=== PATIENT | male | born 1955 | race African-American/Black ===

== ENCOUNTER 2020-10-31 15:18 | Emergency (ER) | payer MEDICAID ==
[~2020-10-31] VITALS: Ht 177.8 cm; Wt 102.0 kg
--- NOTE | 2020-10-31 15:55 | NUR ---
PT IS A 65M WHO COMES IN WITH SOB AND GENERALIZED WEAKNESS SINCE YESTERDAY.. HE HAS A HX OF COPD AND CHF AND HAS A PACEMAKER. [place] VISITING FAMILY. HE WAS UP ALL NIGHT FEELING LIKE HE COULDN'T BREATHE AND FEELS WINDED WHEN HE IS UP AND AROUND. HE IS SPEAKING IN FULL SENTENCES AND DOES NOT APPEAR TO BE IN DISTRESS. HE IS 95% ON RA. CARDIAC, SP02, AND BP MONITORS IN PLACE. CALL LIGHT WITHIN REACH, ED PROVIDER AT BEDSIDE FOR EVAL AND POC
[2020-10-31] MEDS ORDERED: SODIUM CHLORIDE FLUSH 10ML SYR IVF ONE (16:00)
[2020-10-31 16:35] LABS: BASOPHILS % (AUTO) 1 % (0-1); EOSINOPHILS % (AUTO) 2 % (1-7); LYMPHOCYTES % (AUTO) 29 % (22-44); MEAN CORPUSCULAR HEMOGLOBIN 28.6 pg (27.5-34.5); MEAN CORPUSCULAR HGB CONC 33.3 g/dL (33.2-36.2); MEAN PLATELET VOLUME 9.7 fL (7.4-10.4); MONOCYTES % (AUTO) 9 % (2-9); NEUTROPHILS % (AUTO) 59 % (42-75); PLATELET COUNT 107 x10^3/uL (130-400); RED BLOOD COUNT 4.54 x10^6/uL (4.38-5.82); RED CELL DISTRIBUTION WIDTH 14.7 % (9.4-14.8)
[2020-10-31 16:42] LABS: ALANINE AMINOTRANSFERASE 26 U/L (12-78); ALBUMIN 3.5 g/dL (3.4-5.0); ANION GAP 7 mmol/L (5-15); CALCIUM 8.2 mg/dL (8.5-10.1); CHLORIDE 112 mmol/L (98-107); CREATININE 1.46 mg/dL (0.7-1.3); MD NO
[2020-10-31 16:43] LABS: INTERNATIONAL NORMALIZED RATIO 2.02 (0.93-1.1); PROTHROMBIN TIME 21.3 Seconds (9.6-11.5)
[2020-10-31 16:46] LABS: ALKALINE PHOSPHATASE 51 U/L (45-117); BILIRUBIN,TOTAL 0.7 mg/dL (0.2-1.0); TOTAL PROTEIN 6.9 g/dL (6.4-8.2); TROPONIN I < 0.015 ng/mL (0.000-0.045)
--- NOTE | 2020-10-31 16:59 | NUR ---
PT IS RESTING COMFORTABLY WATCHING TV. ALL MONITORS IN PLACE, NAD NOTED. CALL LIGHT WITHIN REACH.
[2020-10-31] MEDS ORDERED: FUROSEMIDE 40 MG/4 ML IV ONE (17:00)
--- NOTE | 2020-10-31 17:54 | NUR ---
PT UPDATED ON POC, TO HAVE CT OF CHEST. UNDERSTANDING VERBALIZED. IV STARTED. PT TO CT VIA JENNIFER.
[2020-10-31] MEDS ORDERED: FUROSEMIDE 40 MG/4 ML ONE (17:59)
[2020-10-31 18:06] VITALS: BP 127/82
--- NOTE | 2020-10-31 18:18 | NUR ---
PT HAS NOT HAD CT YET, DELAYED DUE TO CODE NEURO CALLED.
--- NOTE | 2020-10-31 18:46 | NUR ---
REPORT FROM JARED ERVIN, TRANSFER OF CARE AT THIS TIME
--- NOTE | 2020-10-31 18:50 | NUR ---
PT TO CT AT THIS TIME
[2020-10-31] MEDS ORDERED: OMNIPAQUE 350 MG/ML, 75ML BOTTLE ONE (19:09)
--- NOTE | 2020-10-31 20:05 | NUR ---
Patient given discharge instructions and they have confirmed that they understand the instructions. Patient ambulatory with steady gait.
== END 2020-10-31 20:16 | disposition home or self-care (01) ==
LOC: ED 20:00
DX: I50.9 Heart failure, unspecified (principal); R06.00 Dyspnea, unspecified; M79.89 Other specified soft tissue disorders; I48.91 Unspecified atrial fibrillation; I44.7 Left bundle-branch block, unspecified; R06.02 Shortness of breath; R07.89 Other chest pain; J44.9 Chronic obstructive pulmonary disease, unspecified; I25.2 Old myocardial infarction; Z88.0 Allergy status to penicillin; Z95.0 Presence of cardiac pacemaker; Z87.891 Personal history of nicotine dependence; Z86.718 Personal history of other venous thrombosis and embolism
CPT/HCPCS: 36415; 71045; 71275; 80053; 83880; 84484; 85025; 85379; 85610; 93005; 96374; 99285; J1940; Q9967